=== PATIENT | male | born 1965 | race Caucasian/White ===

== ENCOUNTER 2018-10-09 12:25 | Emergency (ER) | payer OTHER ==
[~2018-10-09] VITALS: Ht 170.2 cm; Wt 86.4 kg
[2018-10-09 12:30] VITALS: Ht 170.2 cm; Wt 86.4 kg
--- NOTE | 2018-10-09 12:45 | ERD ---
ER Documentation Chief Complaint Chief Complaint SI HPI The patient is a 53-year-old male, presenting to the ER because he is suicidal. He cut his right wrist with the bottle top. He complains of auditory hallucination and suicidal ideation, denies homicidal ideation, visual hallucination. He denies headache, neck pain, chest pain dyspnea, abdominal pain, vomiting, dysuria, diarrhea. He smokes and drinks and does illicit drug, does not have tetanus injection for many years, has not taken his psychotropic medication for the last week Past medical history: COPD, schizophrenia, bipolar ROS All systems reviewed and are negative except as per history of present illness. Medications Home Meds Unable to Obtain Active Prescriptions or Reported Meds Physical Exam Vitals Vital Signs Date Temp Pulse Resp B/P (MAP) Pulse Ox O2 O2 Flow FiO2 Time Delivery Rate 10/09/18 62 14 104/62 96 Room Air 17:22 (76) 10/09/18 70 14 110/68 97 Room Air 15:30 (82) 10/09/18 98.2 94 16 139/85 96 Room Air 12:30 (103) Physical Exam Const: No acute distress. Head: Atraumatic. Eyes: Normal Conjunctiva. ENT: Normal External Ears, Nose and Mouth. Neck: Full range of motion. No meningismus. Resp: Clear to auscultation bilaterally. Cardio: Regular rate and rhythm. Abd: Soft, non distended, normal bowel sounds, non tender. Skin: No petechiae or rashes. Back: No midline or flank tenderness. Ext: Right wrist with superficial cut, not amenable for repair Neur: Awake and alert. No focal deficit Psych: Depressed and suicidal Result Diagram: 10/09/18 1316 10/09/18 1317 Results 24 hrs Laboratory Tests Test 10/09/18 13:16 10/09/18 13:17 10/09/18 17:10 White Blood Count 9.9 10^3/ul Red Blood Count 5.06 10^6/ul Hemoglobin 14.5 g/dl Hematocrit 43.3 % Mean Corpuscular Volume 85.6 fl Mean Corpuscular Hemoglobin 28.7 pg Mean Corpuscular 33.5 g/dl Hemoglobin Concent Red Cell Distribution Width 13.3 % Platelet Count 273 10^3/UL Mean Platelet Volume 9.7 fl Immature Granulocytes % 0.300 % Neutrophils % 56.9 % Lymphocytes % 31.4 % Monocytes % 7.0 % Eosinophils % 3.9 % Basophils % 0.5 % Nucleated Red Blood Cells % 0.0 /100WBC Immature Granulocytes # 0.030 10^3/ul Neutrophils # 5.7 10^3/ul Lymphocytes # 3.1 10^3/ul Monocytes # 0.7 10^3/ul Eosinophils # 0.4 10^3/ul Basophils # 0.1 10^3/ul Nucleated Red Blood Cells # 0.0 10^3/ul Sodium Level 142 mmol/L Potassium Level 4.1 mmol/L Chloride Level 102 mmol/L Carbon Dioxide Level 26 mmol/L Anion Gap 14 Blood Urea Nitrogen 9 mg/dl Creatinine 0.60 mg/dl Est Glomerular Filtrat > 60 mL/min Rate mL/min Glucose Level 95 mg/dl Calcium Level 9.8 mg/dl Total Bilirubin 0.6 mg/dl Direct Bilirubin 0.00 mg/dl Indirect Bilirubin 0.6 mg/dl Aspartate Amino 73 IU/L Transf (AST/SGOT) Alanine 60 IU/L Aminotransferase (ALT/SGPT) Alkaline Phosphatase 100 IU/L Total Protein 7.7 g/dl Albumin 4.6 g/dl Globulin 3.10 g/dl Albumin/Globulin Ratio 1.48 Salicylates Level < 1.0 mg/dl Acetaminophen Level < 10.0 ug/ml Ethyl Alcohol Level 35.0 mg/dl Urine Color YELLOW Urine Clarity CLEAR Urine pH 5.0 Urine Specific Morgan 1.014 Urine Ketones 1+ mg/dL Urine Nitrite NEGATIVE mg/dL Urine Bilirubin NEGATIVE mg/dL Urine Urobilinogen NEGATIVE mg/dL Urine Leukocyte Esterase NEGATIVE Carmela/ul Urine Hemoglobin NEGATIVE mg/dL Urine Glucose 1+ mg/dL Urine Total Protein NEGATIVE mg/dl Urine Opiates Screen Positive Urine Barbiturates Negative Urine Amphetamines Screen Pending Urine Benzodiazepines Screen Negative Urine Cocaine Screen Negative Urine Cannabinoids Negative Current Medications Medications Dose Sig/Gabriela Start Time Status Last (Trade) Ordered Route PRN Stop Time Admin Dose Reason Admin Diphtheria/ 0.5 ml ONCE ONCE 10/09/18 DC 10/09/18 Tetanus/Acell IM* 14:00 16:57 Pertussis 10/09/18 14:01 (Adacel) Quetiapine 200 mg ONCE ONCE 10/09/18 DC 10/09/18 Fumarate PO 15:30 17:19 (Seroquel) 10/09/18 15:31 Buspirone 20 mg BID PO 10/09/18 HCl 21:00 (Buspar) Procedures/MDM MEDICAL MAKING DECISION: The patient is a 53-year-old male, presenting with acute suicidal ideation, acute right wrist superficial laceration, ankle and abuse, substance abuse. He was treated with Tdap IM, Seroquel 200 mg p.o. as recommended by telepsychiatrist. The right wrist laceration was cleaned and dressed with normal saline and bacitracin The differential diagnoses considered include but are not limited to decompensated psychiatric illness, substance abuse, drug-induced psychosis, psychosis Departure Diagnosis: Primary Impression: Suicidal ideations Additional Impressions: Laceration of right wrist Substance abuse Condition: Stable Comments The patient's blood pressure was elevated (>120/80) but appears stable without evidence of hypertension emergency or urgency. The patient was counseled about the risks of hypertension and urged to pursue outpatient monitoring and therapy within a week with their primary care physician. He is waiting for PET eval and cleared for psychiatric admission MARIELOS NUNES MD Oct 09, 2018 12:45
[2018-10-09] MEDS ORDERED: DIPHTH/TET/ACEL PERTUSS (ADULT) 0.5 ML VIAL IM* ONE (14:00)
--- NOTE | 2018-10-09 15:00 | PSY ---
Date/Time of Note Date/Time of Note DATE: 10/09/18 TIME: 14:51 Psychiatric Subjective Eval Subjective Evaluation Patient location: emergency Chief Complaint: I wish I was . I am sorry I did not do a good enough job. Reason for consult: SUICIDAL ATTEMPT History of present illness This is a 53 year old male who has a history of heroin and mixed substance abuse as well as history of a severe mental disorder associated with hallucinations and depressed mood. He has a history of multiple history of suicide attempts. He was brought into the ED by EMS. He said he attempted to overdose on Heroin 2 weeks ago. During the interview, he continues to report that he is suicidal. He expressed remorse that he was not successful. Past psychiatric history He has been hospitalized on multiple occasions for symptoms of depression and suicidal ideation. Hospitalization: Suicidal Attempt(s) Family History denies Medical history non contributory. Substance Abuse Substance abuse history: Yes (Heroin) Social History Marital status: single Level of education: 10th grade DPA/Conservatorship: No Occupation/Fpc: unemployed. Psychiatric Objective Eval Review of Systems: Review of Systems: Applicable Constitutional: Normal Eyes: Normal ENT: Normal Neck: Normal Respiratory: Normal Chest/Breast: Normal Cardiovascular: Normal GI: Normal Genitourinary: Normal Skin: Normal Lymphatic: Normal Musculoskeletal: Normal Neurological: Normal Physical Examination: Sleep: Insomnia Appetite: Adequate Energy: Adequate Interest: Decreased Mental Status Examination: Appearance: Groomed Eye Contact: Fair Psychomotor Activity: Normal Behavior: Cooperative Speech: Clear AFFECT: Appropriate Mood: Appropriate/Full, Depressed Though Process: Linear Thought Content: Normal, Hallucinations Suicidal: Yes Homicidal: No On 72 hour hold: No Orientation: x4 Cognition: Alert Insight: Impared Judgement: Impared Attention Span: Intact Laboratory Results Laboratory Tests Test 10/09/18 13:16 10/09/18 13:17 White Blood Count 9.9 10^3/ul Red Blood Count 5.06 10^6/ul Hemoglobin 14.5 g/dl Hematocrit 43.3 % Mean Corpuscular Volume 85.6 fl Mean Corpuscular Hemoglobin 28.7 pg Mean Corpuscular Hemoglobin Concent 33.5 g/dl Red Cell Distribution Width 13.3 % Platelet Count 273 10^3/UL Mean Platelet Volume 9.7 fl Immature Granulocytes % 0.300 % Neutrophils % 56.9 % Lymphocytes % 31.4 % Monocytes % 7.0 % Eosinophils % 3.9 % Basophils % 0.5 % Nucleated Red Blood Cells % 0.0 /100WBC Immature Granulocytes # 0.030 10^3/ul Neutrophils # 5.7 10^3/ul Lymphocytes # 3.1 10^3/ul Monocytes # 0.7 10^3/ul Eosinophils # 0.4 10^3/ul Basophils # 0.1 10^3/ul Nucleated Red Blood Cells # 0.0 10^3/ul Sodium Level 142 mmol/L Potassium Level 4.1 mmol/L Chloride Level 102 mmol/L Carbon Dioxide Level 26 mmol/L Anion Gap 14 Blood Urea Nitrogen 9 mg/dl Creatinine 0.60 mg/dl Est Glomerular Filtrat Rate mL/min > 60 mL/min Glucose Level 95 mg/dl Calcium Level 9.8 mg/dl Total Bilirubin 0.6 mg/dl Direct Bilirubin 0.00 mg/dl Indirect Bilirubin 0.6 mg/dl Aspartate Amino Transf (AST/SGOT) 73 IU/L Alanine Aminotransferase (ALT/SGPT) 60 IU/L Alkaline Phosphatase 100 IU/L Total Protein 7.7 g/dl Albumin 4.6 g/dl Globulin 3.10 g/dl Albumin/Globulin Ratio 1.48 Salicylates Level < 1.0 mg/dl Acetaminophen Level < 10.0 ug/ml Ethyl Alcohol Level 35.0 mg/dl Assessment and Plan Assessment/Diagnosis Diagnosis F39.0 Mood disorder NOS F11.0 Opiate dependence. Recommendation/Plan Medication Management Seroquel 200mg po pm now for acute symptomatic relief. BuSpar 20mg po bid Multiple antipsychotics: No Discharge Disposition: Psychiatric inpatient Legal Status: Place involuntary hold WENDY BENNETT MD Oct 09, 2018 15:00
[2018-10-09] MEDS ORDERED: QUETIAPINE 100 MG TAB PO ONE (15:30)
[2018-10-09] MEDS: BUSPIRONE 10 MG TAB PO SCH (21:03)
[2018-10-10] MEDS: BUSPIRONE 10 MG TAB PO SCH ×2 (09:20→21:19)
--- NOTE | 2018-10-10 21:17 | QN ---
Documentation Comment Patient remains hemodynamically stable without events during ER course. Patient has been accepted to [facility] and is pending transportation at this time. JANET HUNT MD Oct 10, 2018 21:17
[2018-10-10 21:26] VITALS: BP 99/56; PULSE 70; RESP 18
== END 2018-10-10 21:42 ==
LOC: E/R 12:25
DX: S61.511A Laceration without foreign body of right wrist, initial encounter (principal); F19.10 Other psychoactive substance abuse, uncomplicated; J44.9 Chronic obstructive pulmonary disease, unspecified; W26.8XXA Contact with other sharp object(s), not elsewhere classified, initial encounter; Y92.9 Unspecified place or not applicable; Z23 Encounter for immunization
CPT/HCPCS: 36415; 80053; 80307; 81003; 85025; 90471; 90715; Z7502; Z7610